=== PATIENT | female | born 1955 | race Caucasian/White ===

== ENCOUNTER 2018-01-26 11:17 | Outpatient (CLI) | payer BC ==
--- NOTE | 2018-01-27 12:45 | EKG ---
Test Reason : Blood Pressure : / mmHG Vent. Rate : 065 BPM Atrial Rate : 065 BPM P-R Int : 140 ms QRS Dur : 076 ms QT Int : 398 ms P-R-T Axes : -12 032 056 degrees QTc Int : 413 ms Normal sinus rhythm Normal ECG No previous ECGs available Confirmed by HUBER VILLANUEVA ([id number]) on 01/27/2018 12:45:32 PM Referred By: IERO Confirmed By:HUBER VILLANUEVA
== END 2018-01-26 11:18 | disposition home or self-care (01) ==
LOC: LABBT 11:17
PROVIDERS: ATTEND Orthopaedic Surgery
DX: Z01.818 Encounter for other preprocedural examination (principal); M75.102 Unspecified rotator cuff tear or rupture of left shoulder, not specified as traumatic
CPT/HCPCS: 93005; 93010

== ENCOUNTER 2018-01-30 07:27 | Day surgery (SDC) | payer BC ==
[2018-01-26 11:48] VITALS: BMI 29.2
[2018-01-30] MEDS ORDERED: Fentanyl 100 MCG/2 ML VIAL ONE (08:11)
[2018-01-30] MEDS ORDERED: Midazolam HCl 2 mg/2 ml Vial ONE (08:11)
[2018-01-30] MEDS ORDERED: Ropivacaine 0.2% HCl/PF 20 ML ONE (08:11)
[2018-01-30] MEDS ORDERED: Bupivacaine HCl 0.25%/Epi 0.0005/PF 10 ML VIAL FS ONE (08:44)
[2018-01-30] MEDS ORDERED: CEFAZOLIN/Water 2 GM/20 ML SYRINGE ONE (08:55)
[2018-01-30] MEDS ORDERED: Promethazine HCl 25 MG/ML VIAL IM PRN (09:00)
[2018-01-30] MEDS ORDERED: Ketorolac Tromethamine 30 MG/ML VIAL IVP PRN (09:00)
[2018-01-30] MEDS ORDERED: Ondansetron HCl/PF 4 MG/2 ML Vial IVP PRN (09:00)
[2018-01-30] MEDS ORDERED: Ropivacaine HCl/PF 1,100 MG in Sodium Chloride 0.9% 440 ML NERVE BLCK SCH (09:00)
[2018-01-30] MEDS ORDERED: HYDROcodone/Acetaminophen 5/325 mg Tablet PO PRN ×2 (09:00)
[2018-01-30] MEDS ORDERED: traMADol HCl 50 MG TAB PO PRN ×2 (09:00)
[2018-01-30] MEDS ORDERED: Zolpidem Tartrate 5 MG TAB PO PRN (09:00)
[2018-01-30] MEDS ORDERED: Fentanyl 100 MCG/2 ML VIAL IV PRN (09:01)
[2018-01-30] MEDS ORDERED: Lidocaine 2% 10 ML INJ ONE (09:04)
[2018-01-30] MEDS ORDERED: methylPREDNISolone Acetate 40 mg/ml Vial ONE (09:04)
[2018-01-30] MEDS ORDERED: HYDROcodone/Acetaminophen 5/325 mg Tablet ONE ×2 (12:26)
[2018-01-30] MEDS ORDERED: Ropivacaine 0.2% HCl/PF (40 MG/20 ML VIAL) ONE (13:30)
[2018-01-30] MEDS ORDERED: Ropivacaine 0.5% HCl/PF (150 MG/30 ML VIAL) ONE (13:30)
[2018-01-30] MEDS ORDERED: Ketorolac Tromethamine 30 MG/ML VIAL ONE (14:09)
[2018-01-30] MEDS ORDERED: Lidocaine 1% PF 5 ML VIAL ONE (14:09)
[2018-01-30] MEDS ORDERED: ePHEDrine/0.9% NaCl/PF SYRINGE 50 mg/10 ml ONE (14:09)
[2018-01-30] MEDS ORDERED: PHENYLEPHRINE-NS 100 MCG/ML 10 ML SYRINGE ONE (14:09)
[2018-01-30] MEDS ORDERED: Glycopyrrolate 0.2 MG/ML 5 ML SYRINGE ONE (14:09)
[2018-01-30] MEDS ORDERED: PROPOFOL 200 MG/20 ML VIAL ONE (14:09)
[2018-01-30] MEDS ORDERED: Ondansetron HCl/PF 4 MG/2 ML Vial ONE (14:09)
--- NOTE | 2018-01-31 08:34 | OP ---
DATE OF PROCEDURE: 01/30/2018 PREOPERATIVE DIAGNOSES: 1. Left shoulder impingement with rotator cuff tear and biceps tendon tear. 2. Right shoulder impingement. POSTOPERATIVE DIAGNOSES: 1. Left shoulder impingement with rotator cuff tear and biceps tendon tear. 2. Right shoulder impingement. PROCEDURES PERFORMED: Left shoulder arthroscopy followed by subacromial decompression followed by ar throscopic rotator cuff repair, followed by open biceps tenodesis, followed by right shoulder cortico steroid injection into the subacromial space. SURGEON: Eris Booker M.D. INSULATION SUPERVISOR: Miky Rodriguez PA-C. BLOOD LOSS: Approximately 30 mL COMPLICATIONS: None. ANESTHETIC: The patient had general anesthetic as well as a block for the left upper extremity. IMPLANTS: We used one double loaded titanium cuff anchor and a 7 x 23 BioComposite Bio-Tenodesis scr ew. DISPOSITION: She did go to the recovery room in stable condition. INDICATIONS: A 62-year-old female who comes in complaining of bilateral shoulder pain with the left being much worse than the right. This was worked up and she was found to have a small cuff tear and some significant pathology in the biceps tendon and wished at this time to have left shoulder surgery and right shoulder injection. DESCRIPTION OF PROCEDURE: After all appropriate consent forms were explained and signed, she was rik en to the operating room and at this time was given general anesthetic. An 80 mg of Depo-Medrol with plain lidocaine was then injected into the right subacromial space. A Band-Aid was applied. The pa tient was then rolled into the right lateral decubitus position with all bony prominences well-padded . Axillary roll was placed into the right axilla and the sorensen bag was inflated to hold her in this p osition. The left arm was then suspended with 10 pounds in standard fashion. Left upper extremity w as prepped and draped in the standard surgical fashion. Bony anatomic landmarks were drawn out and s ubacromial space was infiltrated with Marcaine with epinephrine. At this time, posterior portal was established. An anterior working portal was then made using a needle localization technique. Diagno stic arthroscopy commenced. Articular surface of the humeral head and glenoid were in excellent cond ition. No loose bodies were noted in the axillary pouch. Posterior labrum and inferior labrum were in good condition. The anterior labrum was intact. The superior labrum was torn and found to have a degenerative SLAP tear. The biceps tendon was found to be subluxed anteriorly out of the bicipital groove. The subscapularis was intact except for the very top portion, which led to this instability. There was also found to be a small full thickness tear in the beginning portion of the supraspinatu s tendon. Shaver was introduced to debride these areas from the articular surface. We then placed a green cannula anteriorly and used an 18 gauge needle to pass a stitch through the biceps tendon. Ar throscopic scissors were then used to cut the biceps from its labral insertion. This area was debrid ed with the shaver. At this time, the scope was replaced into the subacromial space. Lateral workin g portal was made. Bursa was removed from off the underlying cuff and at this time, a small bony dec ompression was performed using the shaver and a surface energy. A passport cannula was then applied. The rotator cuff tear was noted. Shaver was used to debride the edges to get back to healthy tissu e. All soft tissue was removed off of the tuberosity insertion site. This was felt to be a small te ar and at this time, one side to side suture was placed in the medial portion of the tear, so that it could not propagate. We then placed one double-loaded anchor and using the scorpion device, placed one suture from each suture set to the anterior and posterior leaflet of the tear. These two sutures were then subsequently tied and cut. This gave us closure of the rotator cuff tendon. Scope was re moved, shoulder was drained. A 15 blade was then used to incise the skin near our previously placed needle florin to perform our biceps tenodesis. Bovie was used to coagulate any brisk venous bleeding. Deltoid fascia was opened sharply and finger dissection was used to dissect in line with the fibers of the deltoid to get down to the underlying bicipital groove. This was opened up in its entirety. All brisk venous bleeding was coagulated. The tendon was sutured with a suture loop. We then cut of f the intra-articular portion of the tendon. Pin was placed. A 7 mm reamer was used to ream to a de pth of 25. A 7 x 23 Bio[employer]posite Bio-Tenodesis screw was then applied. Sutures were tied over top o f this, so that the screw could not back out. At this time, we then thoroughly irrigated and dried. We allowed our deltoid to close upon itself. Running Vicryl was used to close the deltoid fascia, 2 -0 Vicryl and nylon sutures were used for skin. Each portal was then closed with simple nylon stitch . Bulky sterile dressing was applied. The patient was awakened and taken to the recovery room in st able condition. All counts were correct at the end of the case. She did receive preoperative IV ant ibiotics.
== END 2018-01-30 13:30 | disposition home or self-care (01) ==
LOC: SDC 07:27 → EDBD 12:30 → SDC 13:30
PROVIDERS: ATTEND Orthopaedic Surgery
PROC: 3E0T3BZ Introduction of Anesthetic Agent into Peripheral Nerves and Plexi, Percutaneous Approach (ICD-10-PCS; principal; 2018-01-30)
PROC: 3E0U33Z Introduction of Anti-inflammatory into Joints, Percutaneous Approach (ICD-10-PCS; principal; 2018-01-30)
PROC: 0LS20ZZ Reposition Left Shoulder Tendon, Open Approach (ICD-10-PCS; principal; 2018-01-30)
PROC: 0RNK4ZZ Release Left Shoulder Joint, Percutaneous Endoscopic Approach (ICD-10-PCS; principal; 2018-01-30)
PROC: 0LM24ZZ Reattachment of Left Shoulder Tendon, Percutaneous Endoscopic Approach (ICD-10-PCS; principal; 2018-01-30)
DX: M75.122 Complete rotator cuff tear or rupture of left shoulder, not specified as traumatic (principal); S43.492A Other sprain of left shoulder joint, initial encounter; S46.112A Strain of muscle, fascia and tendon of long head of biceps, left arm, initial encounter; M75.42 Impingement syndrome of left shoulder; M75.41 Impingement syndrome of right shoulder; M19.90 Unspecified osteoarthritis, unspecified site; M85.80 Other specified disorders of bone density and structure, unspecified site; E78.5 Hyperlipidemia, unspecified; G89.29 Other chronic pain; M54.5 Low back pain; E55.9 Vitamin D deficiency, unspecified; Z79.899 Other long term (current) drug therapy
CPT/HCPCS: C1713; J1030; J1885; J2001; J2250; J2405; J2704; J2795; J3010; J7050